=== PATIENT | male | born 1990 | race Caucasian/White ===

== ENCOUNTER 2020-10-21 09:23 | Outpatient (REF) | payer OTHER, SELFPAY ==
[2020-10-21 11:10] LABS: MANUAL DIFF FLAG NO
[2020-10-21 11:19] LABS: Basophils Percent Auto 0.9 % (0-2); Eosinophils Absolute Auto 0.1 X10*3/uL (0.0-0.4); Hematocrit 44.2 % (42-52); Hemoglobin 14.4 g/dl (14.0-18.0); Lymphocytes Absolute Auto 1.2 X10*3/uL (1.2-4.9); Lymphocytes Percent Auto 34.4 % (20-40); Mean Corpuscular HGB Conc 32.6 g/dl (31.0-36.0); Mean Corpuscular Hemoglobin 28.6 pg (27.0-33.0); Mean Corpuscular Volume 87.7 fL (80-98); Mean Platelet Volume 10.6 fL (9.4-12.4); Monocytes Absolute Auto 0.3 X10*3/uL (0.1-1.2); Monocytes Percent Auto 8.9 % (2-11); Neutrophils Absolute Auto 1.8 X10*3/uL (2.0-8.3); Neutrophils Percent Auto 51.8 % (45-73); Platelet Count 188 X10*3/uL (160-400); Red Blood Count 5.04 X10*6/uL (4.60-5.80); Red Cell Distribution Width 12.2 % (11.0-16.0); White Blood Count 3.5 X10*3/uL (4.8-10.8)
[2020-10-21 11:47] LABS: Alanine Aminotransferase 16 U/L (0-40); Albumin Level 4.7 g/dL (3.5-5.0); Alkaline Phosphatase 48 U/L (39-117); Anion Gap 15 (12-20); Aspartate Amino Transferase 19 U/L (5-37); Blood Urea Nitrogen 20 mg/dL (9-16); Calcium 9.7 mg/dL (8.4-10.2); Carbon Dioxide 28 mmol/L (22-29); Chloride 103 mmol/L (96-108); Cholesterol 212 mg/dL; Estimated Glomerular Filt Rate > 60; Glucose Fasting 90 mg/dL (60-99); HDL Cholesterol 58 mg/dL; LDL Cholesterol Calculated 143 mg/dl; Potassium 4.7 mmol/L (3.3-5.1); Sodium 141 mmol/L (135-145); Total Protein 7.5 g/dL (6.5-8.0); Triglycerides 57 mg/dL
[2020-10-21 11:59] LABS: TSH reflex Free T4 1.39 uIU/mL (0.32-4.0)
== END 2020-10-21 09:24 | disposition home or self-care (01) ==
LOC: HO.WFDLDS 09:23
PROVIDERS: Visit Provider Family Medicine
DX: Z00.00 Encounter for general adult medical examination without abnormal findings (principal); E78.00 Pure hypercholesterolemia, unspecified
CPT/HCPCS: 36415; 80053; 80061; 84443; 85025

== ENCOUNTER 2020-10-24 10:00 | Outpatient (RCR) | payer OTHER, SELFPAY ==
--- NOTE | 2020-10-21 12:42 | MHC.PT.EP ---
[facility] [place] Office [place] Office [place] Office [address] Brennon Ching [address] [phone] F: [phone] F: [phone] F: [phone] F: [phone] Physical Therapy Plan of Care Date of Evaluation: 10/21/20 Date of Surgery: Diagnosis: Other injury of unspecified body region; initial encounter T14.8XXA, unspecified body injury PT eval and treat signed by Dr. Oh on 10/17/20. 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 Pt exhibits sunken chest at breastbone which appears consistent appearance of pectus excavatum, decreased strength of periscap musculature, (+) lumbar instability test, and weakness of hip abd. He demonstrated (+) L brissa test for psoas/rectus, and R (+) rectus tightness. Therapist is recommending therapy at a frequency of 2x/week x 4 weeks to address impairments, however patient is electing to attend therapy at a frequency of 1x/weekly. During examination, pt reported pain and demonstrated decreased PA mobility at T6-T12. Pt was educated re: horizontal abduction with RTB two heights, kneeling psoas hip flexors stretch, standing wall ball with red 500gram ball, and educated re: positional adjustments for sleep,posture. He verbalized that lying prone increases his lower back pain and was educated in trialing use of a pillow to reduce lumbar lordosis. During AROM of trunk his mobility is good with greatest restriction noted to be hamstring length. Frequency and Duration: The patient will be seen therapist encouraged 2x/week, pt electing 1x/week Short Term Goals: 1. Pt will demonstrate strength middle trap 5/5 B. 2. Pt will demonstrate strength lower trap 5/5 B. 3. Pt will be initiated in postural/core program. 4. HS length to 170 degrees in 90/90 B. Shelter Goals: 1. Pt will report 50% improvement in sleep disturbance secondary to back pain. 2. Oswestry disability index improved by 50%. 3. Pt will demonstrate negative lumbar instability testing. 4. Pt will demonstrate I with HEP for posture/core stab program. Treatment Plan: Modalities to reduce pain, spasms and effusion. Manual therapy to restore motion and function. Therapeutic exercise to improve strength and flexibility. Neuromuscular re-education for posture and balance. Therapeutic activities to return to functional activities of daily living. Electronically signed by: Debbie Hermosillo, PT, DPT Please sign and return to therapist. Thank you for your referral.
== END 2020-11-07 08:16 | disposition other institution (70) ==
LOC: HO.PTWFD 10:00
PROVIDERS: Visit Provider Family Medicine
DX: M54.5 Low back pain (principal); M54.9 Dorsalgia, unspecified; T14.8XXA Other injury of unspecified body region, initial encounter
CPT/HCPCS: 97110; 97161; 97535